=== PATIENT | female | born 1990 | race Caucasian/White ===

== ENCOUNTER 2020-02-21 06:32 | Emergency (ER) | payer OTHER ==
[~2020-02-21] VITALS: Ht 167.6 cm; Wt 84.4 kg
[2020-02-21 06:39] VITALS: Ht 167.6 cm; Wt 84.4 kg
[2020-02-21 07:36] LABS: BASOPHIL % 0.3 % (0-2); PLATELET COUNT 360 x10^3mcL (130-400); RED CELL DISTRIBUTION WIDTH 13.7 % (11.5-14.5)
[2020-02-21 07:40] LABS: BILIRUBIN TOTAL 0.55 mg/dL (0.20-1.00); CALCIUM 9.2 mg/dL (8.5-10.1); CARBON DIOXIDE 21.8 mmol/L (21-32); CREATININE SERUM 1.2 mg/dL (0.6-1.0); TOTAL PROTEIN, SERUM 7.5 g/dL (6.4-8.2)
[2020-02-21 07:42] LABS: POTASSIUM SERUM 2.4 mmol/L (3.5-5.1)
[2020-02-21 08:41] VITALS: BP 113/70
== END 2020-02-21 08:41 | disposition home or self-care (01) ==
LOC: ED 06:32
PROVIDERS: Emergency Medicine
DX: N23 Unspecified renal colic (principal)
CPT/HCPCS: J1885; J2405; J7030